=== PATIENT | male | born 1975 | race Caucasian/White ===

== ENCOUNTER 2023-07-05 07:45 | Outpatient (AMB) | payer OTHER, SELFPAY ==
--- NOTE | 2023-07-05 07:53 | MHC.OFFVIS ---
Intake Vital Signs 07/05/23 07:59 Height 5 ft 8.5 in Weight 250 lb BMI 37.5 BP 128/77 Blood Pressure Location Lt brachial Position Sitting Pulse 71 Intake Visit Reasons: Colonoscopy Screening Intake Note: Patient new consult for 1st pre colonoscopy screening. Patient denies any GI issues. 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 Has asthma-no hospitalizations, manages well Hx anal fissure- surgery 2000ish Bowels are normal Appetite is good-reviewed reflux precautions No nausea, vomiting, hematemesis, hematochezia fever or chills PFSH Surgical History Hx of tonsillectomy History of anal fissures Family History Father Obesity HTN (hypertension) Liver cancer Mother HTN (hypertension) Obesity Social History (Updated 07/05/23 @ 08:04 by Demetrice Larsen PA-C) Household Members: Family Household Members Other:: 2 kids Alcohol intake: current Alcohol intake frequency: holidays/special occasions only Patient Tobacco Use Status: Never used Tobacco Use of substances other than those prescribed or required for medical reasons: No Review of Systems Const All systems reviewed & are unremarkable except as noted in HPI and below Card Denies chest pain and Denies dyspnea Resp Denies dyspnea GI Denies abdominal pain, Denies hematochezia, Denies change in stool character, Reports heartburn, Denies nausea and Denies vomiting Physical Exam Vital Signs: Last Vital Signs Pulse 71 07/05/23 07:59 BP 128/77 07/05/23 07:59 BMI result Body Mass Index 37.5 Const General: cooperative, healthy appearing and comfortable Orientation/consciousness: patient oriented x3 Limitations: no limitations Eyes Sclerae: sclerae normal Resp Effort & Inspection: normal respiratory effort and able to speak in complete sentences Auscultation: clear to auscultation bilaterally, no rales, no rhonchi and no wheezes Cardio Rate: regular rate Rhythm: regular rhythm Heart sounds: S1 normal heart sound present and S2 normal heart sound present GI Palpation (GI): Soft to palpation and nontender Auscultation: normal bowel sounds Skin General skin exam: other (eczema) Neuro General: patient oriented x3 Extrem General: Yes full ROM Psych Appearance: grossly normal and well kempt Mental Status: mental status grossly normal Speech and movement: Normal speech and movement present and Clear speech present Affect: normal affect Attitude: cooperative Thought process: Normal thought process present Thought content: Normal thought content present Insight: Good insight present (Psych) Judgement: Good judgement present (Psych) Assessment & Plan Assessment & Plan (1) Acid reflux: Code(s): K21.9 - Gastro-esophageal reflux disease without esophagitis Plan: Reflux precautions Continue PPI (2) Encounter for screening colonoscopy: Comment: Screening colonoscopy Discussed procedure, risks need for escort Code(s): Z12.11 - Encounter for screening for malignant neoplasm of colon Plan: Screening colonoscopy MiraLax Gatorade prep Plan egd/ colon MiraLax Gatorade prep Orders: Orders EGD/Cushman Combo - GI Use Only Today K21.9 - Gastro-esophageal reflux disease without esophagitis, Z12.11 - Encounter for screening for malignant neoplasm of colon Medications: New polyethylene glycol 3350 (Miralax) Take as directed by mouth the day before your procedure. 238 grams PO ONCE 1 day PRN 238 grams 0RF laxative effect bisacodyl (Dulcolax (bisacodyl)) Day before procedure, prep day Take 4 tablets by mouth upon awakening followed by large glass of water 20 mg (4 x 5 mg) PO ONCE 1 day PRN 4 tabs 0RF colonoscopy prep Z12.11 - Encounter for screening for malignant neoplasm of colon Patient Instructions: Very pleasant 48-year-old Gent referred for screening colonoscopy presents with acid reflux. Pantoprazole with fair response. Agreeable to EGD for further evaluation of PUD, nonulcer dyspepsia, esophagitis or other endoscopic findings to account for his symptoms, as well as screening colonoscopy Reviewed prep, written literature given Reflux precautions reviewed, avoid culprits Continue PPI No major barriers to understanding are identified appreciate the opportunity assist in the care this Gent Coding Level of Care Code New Pt Level 3 (21803) Diagnoses Acid reflux K21.9 Encounter for screening colonoscopy Z12.11 Time Spent (min) 30
[2023-07-05 07:59] VITALS: BP 128/77; PULSE 71; BMI 37.5
== END 2023-07-05 08:19 | disposition home or self-care (01) ==
PROVIDERS: PCP Hospitalist; Visit Provider Physician Assistant
DX: K21.9 Gastro-esophageal reflux disease without esophagitis (principal); Z12.11 Encounter for screening for malignant neoplasm of colon
CPT/HCPCS: 99203

== ENCOUNTER → 2023-07-05 07:45 | Outpatient (BNVA) | payer OTHER, SELFPAY | PROVIDERS: PCP Hospitalist; Visit Provider Physician Assistant ==

== ENCOUNTER 2023-10-18 08:33 | Day surgery (SDC) | payer OTHER, SELFPAY ==
[2023-10-16 13:18] VITALS: BMI 37.5
--- NOTE | 2023-10-17 16:45 | HO.ANESPROP2 ---
HPI - Anesthesia Eval Consult details Narrative: 48 yo male patient for EGD, Colonoscopy PMFSH Active Problems Active Problems: All Active Problems Encounter for screening colonoscopy (Acute) Acid reflux (Acute) EDWARD. Uses CPAP Anxiety/ Depression HTN Past Medical History Medical History GERD (gastroesophageal reflux disease) Family History Family History Father Obesity HTN (hypertension) Liver cancer Mother HTN (hypertension) Obesity Family history of problems with anesthesia: No Surgical History Surgical History Hx of tonsillectomy History of anal fissures History of Problems with Anesthesia: No Social History Social History Household Members: Family Household Members Other:: 2 kids Alcohol intake: current Alcohol intake frequency: holidays/special occasions only Patient Tobacco Use Status: Never used Tobacco Are you DNR?: No Advance Directives: No Advance Directives Information Provided: Yes Nutrition Risks: No Nutritional Risk Meds Allergies Allergy/AdvReac Type Severity Reaction Status Date / Time No Known Allergies Allergy Verified 10/18/23 09:07 Home Medications ?Medication ?Instructions ?Recorded ?Confirmed ?Last Taken ?Type amlodipine 5 mg-valsartan 160 1 tab PO DAILY 07/05/23 10/16/23 Unknown History mg-hydrochlorothiazide 25 mg tablet pantoprazole 20 mg tablet,delayed 20 mg PO DAILY 07/05/23 10/16/23 Unknown History release sertraline 50 mg tablet 50 mg PO DAILY 07/05/23 10/16/23 Unknown History Exam Height,Weight and Vital Signs: Height 5 ft 8.5 in Weight 113.398 kg Vital Signs Temp Pulse Resp BP Pulse Ox O2 Del Method 10/18/23 10:08 98.2 F 58 18 120/75 99 Room Air Airway Mallampati Class: III TM Dist: >3cm Neck ROM: Full Loose/Missing/Broken Teeth: No Heart: RRR Lungs: CTAB Assessment and Plan Assessment Anesthesia Assessment: Anesthesia Plan Discussed and Chart Reviewed Final Anesthetic Review Family History of Problems with Anesthesia: No History of Problems with Anesthesia: No NPO: Yes ASA Class: III Final Preanesthetic Review: No Changes in Pt Med Stat, Meds/Allgs Chart Reviewed, Consent Obtained/Reviewed and Anes Risks/Benef Reviewed Patient Risk: Intermediate Procedure Risk: Low Assessment/Block/Sedation in SS: Assess/Block/Sedation-SS Anesthetic Plan Anesthetic Plan: MAC: and TIVA Disposition: Standard PACU
[2023-10-18 09:42] VITALS: BMI 39.0
[2023-10-18] MEDS: Lactated Ringers 1,000 ML 100 ML IVCONT (10:03)
[2023-10-18 10:08] VITALS: BP 120/75; PULSE 58; RESP 18; TEMP 36.8; O2SAT 99
--- NOTE | 2023-10-18 11:47 | W.PM.OPN ---
Operative Note Operative Note Date of Service: 10/18/23 Narrative: Operative Information Procedure Description: EGD, Colonoscopy Indication: screening, GERD Anesthesia: MAC FLEXIBLE TRANSORAL UPPER GASTROINTESTINAL ENDOSCOPY AND COLONOSCOPY PROCEDURE NOTE UPPER ENDOSCOPY Consent: Indications for the procedure and potential complications of bleeding, perforation, reaction to medications and missed diagnosis were discussed with the patient and informed consent was obtained. Instrument: Olympus GIF H 190 J mid size upper endoscope Monitoring: Vital signs and clinical assessment, continuous EKG monitoring, Pulse oximetry, Carbon Dioxide monitoring and blood pressure monitoring were done throughout the procedure. Procedure: The patient was placed in the left lateral decubitis position and pre-procedure medications were administered and a bite block was placed. The endoscope was inserted into the mouth and advanced under direct vision to the third part of duodenum. A careful inspection was made as the upper endoscope was withdrawn including a retroflexed examination of the proximal stomach; Findings and interventions are described below. Findings: Larynx:normal Esophagus: GE junction at 38 cm, diaphragm hiatus at 38 cm, schatzki ring noted with mild surrounding esophagitis, bx taken also from proximal esophagus Stomach: few patchy erosions and erythema in antrum. Biopsies were obtained. Grade 2 flap valve on retroflexed examination of the cardia. Duodenum: Normal bulb and descending duodenum, Intervention: Biopsies as noted above, COLONOSCOPY Instrument: Olympus variable stiffness ADULT scope 190L Colonoscopy Monitoring: Vital signs and clinical assessment, continuous EKG monitoring, Pulse oximetry, Carbon Dioxide monitoring and blood pressure monitoring were done throughout the procedure. Colon withdrawal time was 20 minutes. Procedure: The patient was placed in the left lateral decubitis position and pre-procedure medications were administered. After a digital rectal examination of the ano-rectum, the video colonoscope was inserted into the rectum and advanced through the colon to the cecum/TI. The colonoscope was slowly withdrawn in a retrograde panoramic fashion and the colon mucosa was carefully examined including a retroflexed view of the rectum. Findings and interventions are described below. Procedure Difficulty:moderate Findings: Terminal Ileum-not intubated Cecum:normal Ascending Colon: 12 mm flat granular polyp elveated with eleview and removed with stiff hot snare, retrieved with net and then x 3 clips applied to close defect Transverse Colon -normal Descending Colon:normal Sigmoid Colon: normal Rectum: Retroflexion with small internal hemorrhoids, grade I Anorectum - normal Colon preparation: Underwood Bowel Preparation Scale Right colon; 2 Transverse colon: 2 Left colon; 2 (0 = Unprepared colon segment with mucosa not seen due to solid stool that cannot be cleared. 1 = Portion of mucosa of the colon segment seen, but other areas of the colon segment not well seen due to staining, residual stool and/or opaque liquid. 2 = Minor amount of residual staining, small fragments of stool and/or opaque liquid, but mucosa of colon segment seen well. 3 = Entire mucosa of colon segment seen well with no residual staining, small fragments of stool or opaque liquid) Impression and Post Procedure Diagnosis: Endoscopy Findings: schatzki ring esophagitis, mild mild erosive gastritis Colonoscopy Findings: colon polyp internal hemorrhoids Plan: Await Pathology results Repeat Colonoscopy in 2-3 years or earlier if clinically indicated High fiber diet leaflet avoid straining at stool, epsom salts and sitz bath, anusol supps or cream GERd precautions --consider increasing PPI dose, avoid nsaids Above findings were reviewed with the patient and relevant handouts were provided if indicated.
[2023-10-18 12:04] VITALS: BP 123/84; PULSE 62; RESP 16; TEMP 36; O2SAT 97
[2023-10-18 12:19] VITALS: BP 133/90; PULSE 62; RESP 16; TEMP 36; O2SAT 97
== END 2023-10-18 13:15 | disposition home or self-care (01) ==
PROVIDERS: PCP Hospitalist; Visit Provider Internal Medicine Gastroenterology
PROC: (CPT 45381; principal; 2023-10-18 10:40)
DX: Z12.11 Encounter for screening for malignant neoplasm of colon (principal); D12.2 Benign neoplasm of ascending colon; K64.0 First degree hemorrhoids; K22.2 Esophageal obstruction; K21.00 Gastro-esophageal reflux disease with esophagitis, without bleeding; K29.60 Other gastritis without bleeding; Z79.899 Other long term (current) drug therapy
CPT/HCPCS: 45381; 45385; 43239; 88305; 88313; 88342; J1596; J2704

== ENCOUNTER → 2023-10-18 08:33 | Outpatient (BNV) | payer OTHER, SELFPAY | PROVIDERS: PCP Hospitalist; Visit Provider Internal Medicine Gastroenterology | DX: Z12.11 Encounter for screening for malignant neoplasm of colon (principal); K21.00 Gastro-esophageal reflux disease with esophagitis, without bleeding; K22.2 Esophageal obstruction; D12.2 Benign neoplasm of ascending colon; K64.0 First degree hemorrhoids | CPT/HCPCS: 43239; 45381; 45385 ==

== ENCOUNTER 2023-11-28 07:54 | Outpatient (AMB) | payer OTHER, SELFPAY ==
--- NOTE | 2023-11-28 08:06 | MHC.OFFVIS ---
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 Required: No Accompanied by: Self / Same As Patient Allergies No Known Allergies Allergy (Verified 11/28/23 08:06) Medication List - Last Reconciled 11/28/23 by Demetrice Larsen PA-C [id number] 5-160-25 mg 1 tab PO DAILY sertraline 50 mg PO DAILY HPI Comments Details: Very pleasant 48-year-old with acid reflux follows up after recent EGD and screening colonoscopy He tolerated procedures well He is taking pantoprazole 20 mg daily with occasional breakthrough symptoms Appetite good, he has begun going to the gym-dietary modifications on weight loss plan Bowels are normal Hemorrhoids, not been an issue Reviewed procedure report, pathology and recommendation He has no nausea, vomiting hematemesis, hematochezia fever chills PFSH Medical History (Updated 11/28/23 @ 08:32 by Demetrice Larsen PA-C) GERD (gastroesophageal reflux disease) Surgical History History of esophagogastroduodenoscopy (EGD) Hx of colonoscopy Hx of tonsillectomy History of anal fissures Family History Father Obesity HTN (hypertension) Liver cancer Mother HTN (hypertension) Obesity Social History Household Members: Family Household Members Other:: 2 kids Alcohol intake: current Alcohol intake frequency: holidays/special occasions only Patient Tobacco Use Status: Never used Tobacco Review of Systems Const All systems reviewed & are unremarkable except as noted in HPI and below GI Denies abdominal pain and Reports heartburn Physical Exam Vital Signs: Last Vital Signs Pulse 75 11/28/23 08:07 BP 134/76 11/28/23 08:07 BMI result Body Mass Index 39.7 Const General: cooperative, healthy appearing, comfortable and no acute distress Orientation/consciousness: patient oriented x3 Limitations: no limitations Neuro General: patient oriented x3 Extrem General: Yes full ROM Psych Appearance: grossly normal and well kempt Mental Status: mental status grossly normal Speech and movement: Normal speech and movement present and Clear speech present Affect: normal affect Attitude: cooperative Thought process: Normal thought process present Thought content: Normal thought content present Insight: Good insight present (Psych) Judgement: Good judgement present (Psych) Results Reviewed Results Reviewed: Impression and Post Procedure Diagnosis: Endoscopy Findings: schatzki ring esophagitis, mild mild erosive gastritis Colonoscopy Findings: colon polyp internal hemorrhoids Plan: Await Pathology results Repeat Colonoscopy in 2-3 years or earlier if clinically indicated High fiber diet leaflet avoid straining at stool, epsom salts and sitz bath, anusol supps or cream GERd precautions --consider increasing PPI dose, avoid nsaids Above findings were reviewed with the patient and relevant handouts were provided if indicated. Ascending Colon: 12 mm flat granular polyp elveated with eleview and removed with stiff hot snare, retrieved with net and then x 3 clips applied to close defec Name: AlejoBobby Age/Sex: 48/M Attending: Lazaro Pantoja MD : 1975 Submitted by: Lazaro Pantoja MD Copies to: Deanna Gross MD MR #: [id number] Status: [facility] Collected: 10/18/23 Location: [facility] Received: 10/18/23 Diagnosis A. Colon, ascending, polypectomy: Fragments of tubular adenoma; negative for high-grade dysplasia or carcinoma. B. Stomach, biopsy: Antral-type mucosa within normal limits; no Helicobacter organisms seen. C. GE junction, biopsy: - Cardiac-type mucosa with moderate chronic inactive inflammation; no intestinal metaplasia seen. - Active esophagitis (maximum eosinophil count 32 per high powered field). D. Esophagus, proximal, biopsy: Squamous epithelium within normal limits; no inflammation seen. Clinical History Pre-Op Dx: GERD, screening Post-Op Dx: Schatzki's ring, esophagitis, erosive gastritis, colon polyp, hemorrhoids Microscopic Description A-D. Microscopic sections examined. No metaplastic changes are seen, supported by AB/PAS stains (B and C); no Helicobacter organisms are seen, supported by H. pylori immunostain (B). Material Received A. Ascending colon polyp B. Stomach bx's C. GE junction D. Proximal esophagus bx's Gross Description Received in 4 parts. Part A: Received in formalin labeled ?ascending colon polyp? along with copious sarmiento debris are multiple sarmiento-pink irregular, rectangular and papular tissue fragments ranging from 0.15-0.6 cm and aggregating 1.2 x 1.0 x 0.1-0.45 cm, submitted in toto in a cassette labeled A. Part B: Received in formalin labeled ?stomach bx's (sic)? is a 0.35 cm sarmiento-pink irregular tissue fragment, submitted in toto in a cassette labeled B. Part C: Received in formalin labeled ?GE junction? are 3 pale, lane-pink irregular tissue fragments each Patient: Bobby Dhillon Age/Sex: 48/M MR#: [id number] Page 1 of 2 Assessment & Plan Assessment & Plan (1) Schatzki's ring: Code(s): K22.2 - Esophageal obstruction Category: Medical (2) Esophagitis: Code(s): K20.90 - Esophagitis, unspecified without bleeding Category: Medical Plan: Increase pantoprazole Avoid NSAID (3) Tubular adenoma: Comment: Repeat asymptomatic colonoscopy 2-3 All first-degree relatives begin colon screening at age 38 Code(s): D36.9 - Benign neoplasm, unspecified site Category: Medical Plan: Colonoscopy 2-3 year Ascending Colon: 12 mm flat granular polyp elveated with eleview and removed with stiff hot snare, retrieved with net and then x 3 clips applied to close defec Plan As discussed pantoprazole 40 mg carafate x 4 wks- avoid NSAIDs Reflux precautions Repeat asymptomatic colonoscopy 2-3 years Will see back in 4 office visit in 2 year All first-degree relatives begin colon screening at age 38 Will see back for progress with acid reflux 5 months-sooner if indicated Encouraged to call with questions or concerns Medications: New pantoprazole 40 mg PO DAILY 30 days 30 tabs 5RF sucralfate 1 g (10 mL) PO QIDACHS 4 weeks PRN 420 mL 0RF reflux Patient Instructions: As discussed pantoprazole 40 mg carafate x 4 wks- avoid NSAIDs Reflux precautions Repeat asymptomatic colonoscopy 2-3 years Will see back in 4 office visit in 2 year All first-degree relatives begin colon screening at age 38 Coding Level of Care Code Est Pt Level 3 (55618) Diagnoses Schatzki's ring K22.2 Esophagitis K20.90 Tubular adenoma D36.9 Time Spent (min) 20
[2023-11-28 08:07] VITALS: BP 134/76; PULSE 75; BMI 39.7
== END 2023-11-28 08:30 | disposition home or self-care (01) ==
PROVIDERS: PCP Hospitalist; Visit Provider Physician Assistant
DX: K22.2 Esophageal obstruction (principal); K20.90 Esophagitis, unspecified without bleeding; D36.9 Benign neoplasm, unspecified site
CPT/HCPCS: 99213

== ENCOUNTER → 2023-11-28 07:54 | Outpatient (BNVA) | payer OTHER, SELFPAY | PROVIDERS: PCP Hospitalist; Visit Provider Physician Assistant ==

== ENCOUNTER 2024-07-14 08:09 | Outpatient (AMB) | payer BC, SELFPAY ==
--- NOTE | 2024-07-14 08:13 | MHC.OFFVIS ---
Vital Signs 07/14/24 08:15 Height 5 ft 8.5 in Weight 265 lb BMI 39.7 BP 138/73 Blood Pressure Location Lt brachial Position Sitting Pulse 77 Intake Visit Reasons: Esophagitis/Demetrice pt Intake Note: Patient 8 month follow up for Esophagitis/Demetrice pt. Patient ramandeep was 10/2023 by Demetrice. Patient denies any GI issues fortoday visit. 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 Required: No Accompanied by: Self / Same As Patient Allergies No Known Allergies Allergy (Verified 07/14/24 08:11) HPI HPI Esophagitis/Demetrice pt: Details: LAST VISIT with Marilu HERNANDEZ 11/28/2023 Plan As discussed pantoprazole 40 mg carafate x 4 wks- avoid NSAIDs Reflux precautions Repeat asymptomatic colonoscopy 2-3 years Will see back in 4 office visit in 2 year All first-degree relatives begin colon screening at age 38 Will see back for progress with acid reflux 5 months-sooner if indicated Encouraged to call with questions or concerns TODAY'S VISIT Patient is here today to follow-up on his current treatment for acid reflux. Patient denies any GI concerning symptoms. Reports that his treatment for acid reflux has been working. It was changed to omeprazole. Patient denies any dyspepsia, dysphagia or odynophagia. Patient denies melena, hematochezia, unintentional weight loss or ribbon like stools. Colonoscopy next year in September. Patient reports to have good appetite. Denies abdominal pain or discomfort. Moves his bowels without any issues, denies any diarrhea or constipation [facility] Medical History (Updated 07/14/24 @ 18:43 by Noemy Dorsey [facility]) GERD (gastroesophageal reflux disease) Surgical History History of esophagogastroduodenoscopy (EGD) Hx of colonoscopy Hx of tonsillectomy History of anal fissures Family History Father Obesity HTN (hypertension) Liver cancer Mother HTN (hypertension) Obesity Social History Household Members: Family Household Members Other:: 2 kids Alcohol intake: current Alcohol intake frequency: holidays/special occasions only Patient Tobacco Use Status: Never used Tobacco Review of Systems Const Denies weight gain and Denies weight loss ENT Reports no additional complaints, Denies dysphagia and Denies odynophagia Card Reports no additional complaints Resp Reports no additional complaints GI Denies abdominal pain, Denies belching, Denies melena, Denies bloating, Denies change in bowel habits, Denies dysphagia, Denies excessive flatus, Denies dyspepsia, Denies heartburn, Denies diarrhea, Denies loose stools, Denies nausea, Denies odynophagia and Denies vomiting Reports no additional complaints Musc Reports no additional complaints Neuro Reports no additional complaints Psych Reports no additional complaints Endo Reports no additional complaints Physical Exam Vital Signs: Last Vital Signs Pulse 77 07/14/24 08:15 BP 138/73 07/14/24 08:15 BMI result Body Mass Index 39.7 Const General: healthy appearing and no acute distress Nutritional Appearance: obese Orientation/consciousness: patient oriented x3 Resp Effort & Inspection: normal respiratory effort, able to speak in complete sentences, no tracheal deviation and symmetric chest movement Auscultation: clear to auscultation bilaterally Cardio Rate: regular rate GI Inspection: Yes normal to inspection, No distended and Yes obesity Palpation (GI): Soft to palpation, not firm, nontender and No hepatosplenomegaly present Auscultation: normal bowel sounds General: Yes no CVA tenderness Back/Spine/Pelvis Back: no CVA tenderness Skin General skin exam: elasticity normal, turgor normal and dry skin Neuro General: patient oriented x3 Psych Appearance: grossly normal Mental Status: mental status grossly normal Assessment & Plan Assessment & Plan (1) Tubular adenoma: Code(s): D36.9 - Benign neoplasm, unspecified site Category: Medical (2) Schatzki's ring: Code(s): K22.2 - Esophageal obstruction Category: Medical (3) Esophagitis: Code(s): K20.90 - Esophagitis, unspecified without bleeding Category: Medical (4) Acid reflux: Code(s): K21.9 - Gastro-esophageal reflux disease without esophagitis Category: Medical Qualifiers: Esophagitis presence: with esophagitis Esophagitis bleeding: without hemorrhage Qualified Code(s): K21.00 - Gastro-esophageal reflux disease with esophagitis, without bleeding Plan Omeprazole daily. Avoid dietary triggers and late night snacking. Staying upright for minimum 3 hours after meals discussed with patient. Patient will be due to go for colonoscopy next year in September. Patient will follow-up in our office as needed or next year. Patient was encouraged to call us if he will have any GI concerning symptoms. He is agreeable to this plan and verbalizes understanding of instructions. He was given the opportunity to ask questions and all questions answered. Thank you for allowing me to participate in his care Medications: New omeprazole 20 mg PO DAILY 90 tabs 2RF Discontinued sucralfate Discontinued Reason: Doctor's Order 1 g (10 mL) PO QIDACHS 4 weeks PRN 420 mL 0RF reflux pantoprazole Discontinued Reason: Doctor's Order 40 mg PO DAILY 30 days 30 tabs 5RF Coding Level of Care Code Est Pt Level 3 (64249) Diagnoses Tubular adenoma D36.9 Schatzki's ring K22.2 Esophagitis K20.90 Gastroesophageal reflux disease with esophagitis without hemorrhage K21.00 Esophagitis presence: with esophagitis Esophagitis bleeding: without hemorrhage Time Spent (min) 25 Comment 15 minutes spent with patient and additional 10 minutes spent reviewing his records
--- OUTSIDE RECORDS SUMMARY | 2024-07-14 08:13 | XMS_ITS ---
Author Organization 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 Generated for Chesteri nata/Miky/eTransmitting on:?07/14/2024 08:12 AM EST
--- OUTSIDE RECORDS SUMMARY | 2024-07-14 08:13 | XMS_ITS ---
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 Generated for Christian peace/Miky/eTransmitting on:?07/14/2024 08:12 AM EST
--- OUTSIDE RECORDS SUMMARY | 2024-07-14 08:13 | XMS_ITS | Patient Health Record ---
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 Name Role Phone EDITH STANLEY Primary Care Provider Abran Casey Unavailable [phone] Allergies Allergen (clinical drug ingredient) Drug/Non Drug Allergy documented on EMR Reaction Allergy Type Onset Date Status Enviromental (uncoded) Unknown Allergy Active Mold (uncoded) Unknown Allergy Activ e Pet dander (uncoded) Unknown Allergy Active Dust Mite Mixed Allergen Ext Unknown Drug Allergy Active Results Component Value Reference Range Notes Vitamin D, [id number] Reviewed date:05/20/2024 07:47:34 AM Interpretation: Performing Lab:[facility], [address] [place] [address], Phone - [phone], Director - Angie Notes/Report: Clinical Information:SRC: Vitamin D, 25-Hydroxy 32.9 30.0-100.0 ng/mL Vitamin D deficiency has been defined by the [place] of [employer] and an Endocrine Society practice guideline as a level of serum 25-OH vitamin D less than 20 ng/mL (1,2). The Endocrine Society went on to further define vitamin D insufficiency as a level between 21 and 29 ng/mL (2). 1. IOM ([place] of Medicine). 2010. Dietary reference intakes for calcium and D. [place]: The National Academies Press. 2. Finn MF, Susanna NC, Inocencia LIMA, et al. Evaluation, treatment, and prevention of vitamin D deficiency: an Endocrine Society clinical practice guideline. JCEM. 2010; 96(7):5251-30. Hemoglobin [id number] Reviewed date:05/20/2024 07:47:30 AM Interpretation: Performing Lab:[facility], [address] [facility], [place], Phone - [phone], Director - Angie Notes/Report: Clinical Information:SRC: Hemoglobin A1c 6.1 4.8-5.6 % . Prediabetes: 5.7 - 6.4 Diabetes: >6.4 Glycemic control for adults with diabetes: <7.0 Hgb A1c with eAG Estimation- [id number] Reviewed date:10/14/2023 09:31:09 AM Interpretation: Performing Lab:[facility], [address] [facility], [place], Phone - [phone], Director - Angie Notes/Report: Hemoglobin A1c 5.6 4.8-5.6 % . Prediabetes: 5.7 - 6.4 Diabetes: >6.4 Glycemic control for adults with diabetes: <7.0 Estim. Avg Glu (eAG) 114 Reason For Referral No Information Medications Medication SIG (Take, Route, Frequency, Duration) Notes Start Date End Date Status ZyrTEC Allergy 10 MG 1 tablet Orally Onc e a day Active Flonase Allergy Relief 50 MCG/ACT 1 spray in each nostril Nasally Once a day as needed Not-Taking Albuterol Sulfate HFA 108 (90 Base) MCG/ACT 1 puff as needed Inhalation every 4 hrs Active Diprolene 0.05 % 1 application Externally twice a day for 30 days Active Pantoprazole Sodium 20 MG TAKE 1 TABLET BY MOUTH EVERY DAY for 90 Active Omeprazole 20 MG 1 capsule 30 minutes before morning meal Orally Once a day for 30 days 05/28/2024 Active amLODIPine Besylate 5 MG 1 tablet Orally Once a day for 90 days Active Sertraline HCl 25 MG TAKE 1 TABLET BY MOUTH EVERY DAY for 30 Active hydroCHLOROthiazide 25 MG 1 tablet in th e morning Orally Once a day for 90 days Active Sertraline HCl 50 MG TAKE 1 TABLET BY MOUTH EVERY DAY for 90 Active Immunizations Vaccine Route Administration Date Status Comme nts COVID Unknown 09/23/2020 Administered 1st pizer COVID Unknown 10/14/2020 Administered 2nd pfizer COVID Unknown 04/16/2021 Administered COVID Unknown 03/31/2022 Administered Influenza Unknown 03/31/2022 Administered Influenza, high dose seasonal Unknown 04/16/2021 Admini stered Tdap Unknown 12/09/2009 Administered Social History Tobacco Use: Social History Observation Description Date Details (start date - stop date) Never Smoker NA - NA Tobacco Use/Smoking Question Answer Notes Are you a nonsmoker Alcohol Screen (Audit-C) Question Answer Notes Did you have a drink containing alcohol in the p ast year? No Points 0 Interpretation Negative Problems Problem Type SNOMED Code ICD Code Onset Dates Problem Status W/U Status Risk Notes Problem Mild recurrent major depression (42885242) Major depressive disorder, recurrent, mild (F33.0) Active confirmed Problem Insomnia (676510223) Insomnia, unspecified (G47.00) Active confirmed Problem Seasonal allergic rhinitis (722499657) Other seasonal allergic rhinitis (J30.2) Active confirmed Problem Gastro-esophagea l reflux disease without esophagitis (125162870) Gastro-esophagea l reflux disease without esophagitis (K21.9) Active confirmed Problem Essential hypertension (21673182) Essential (primary) hypertension (I10) Active confirmed Problem Vitamin D deficiency (78237911) Vitamin D deficiency (E55.9) Active confirmed Problem History of disease caused by Severe acute respiratory syndrome coronavirus 2 (situation) (620010709028204 105) Personal history of COVID-19 (Z86.16) Active confirmed Problem Obstructive sleep apnea (53375867) Obstructive sleep apnea (G47.33) Active confirmed Problem Seasonal allergy (102581414) Seasonal allergies (J30.2) Active confirmed Vital Signs Heart Rate 72 /min 05/28/2024 Temperature 97.6 degrees Fahrenheit 03/19/2024 Blood pressure diastolic 90 mm Hg 05/28/2024 Oximetry 100 % 05/28/2024 Height 69.6 in 05/28/2024 Blood pressure systolic 138 mm Hg 05/28/2024 Weight 271 lbs 05/28/2024 BMI 39.33 kg/m2 05/28/2024 Encounters Encounter Location Date Provider Diagnosis [facility] [address] [address] 11/22/2023 EDITH STANLEY Essential (primary) hypertension I10 ; Gastro-esophageal reflux disease without esophagitis K21.9 ; Obstructive sleep apnea G47.33 ; Major depressive disorder, recurrent, mild F33.0 ; Vitamin D deficiency E55.9 ; Impaired fasting glucose R73.01 and Dermatitis, unspecified L30.[address] [address] 03/19/2024 Abran Casey Hypertrophic disorde r of the skin, unspecified L91.[address] [address] 05/28/2024 SHARMABOBBI GARZA Essential (primary) hypertension I10 ; Major depressive disorder, recurrent, mild F33.0 ; Gastro-esophageal reflux disease without esophagitis K21.9 ; Vitamin D deficiency E55.9 ; Impaired fasting glucose R73.01 and Obstructive sleep apnea G47.[address] [address] 09/19/[address] [address] 05/06/[address] [address] 05/08/2024 SHARMA GU Assessments Encounter Date Diagnosis (ICD Code) Assessment Notes Treatment Notes Treatment Clinical Notes Section Notes 11/22/2023 Gastro-esophage al reflux disease without esophagitis (ICD-10 - K21.9) Mr. Dhillon is a 48-year-old gentleman with a history of hypertension, asthma, seasonal allergies and depression here for follow up. Plan is as follows: Hypertension. Blood pressure is borderline high in the office today. Cut back on sodium intake. Advised appropriate hydration, cardio exercises and weight loss. Continue on current regimen. Major depressive disorder. Mood stable on Zoloft 75 MG daily. He talks to a counselor on a regular basis. Morbid obesity. Advised dietary restrictions and regimental exercise. Goal is to lose 5-6 lbs a month. GERD. Dietary restrictions advised and keep head elevated in bed. No late night eating. Keep a food diary and avoid triggers. Avoid heavy doses of NSAIDs. He is given Protonix 20 MG to be taken 30 minutes before dinner. EDWARD. Mallampati Class 4. Different modalities discussed. He will have a sleep study in June. Impaired fasting glucose. Fasting sugars 107. Dietary restrictions, regimental exercise and weight loss advised. Check A1c. Vitamin D deficiency. He can take Vitamin D supplements. Check levels. General health concerns discussed with patient. Scribe services used to formulate this note under HIPAA compliance and under [place] law mandated for scribe services. Patient aware of service. Verbal consent and written consent taken from the patient. Patient understands and verbalizes understanding of the scribes services and all questions answered regarding scribes services. Patient agrees to use of scribes services. 11/22/2023 Essential (primary) hypertension (ICD-10 - I10) Mr. Dhillon is a 48-year-old gentleman with a history of hypertension, asthma, seasonal allergies and depression here for follow up. Plan is as follows: Hypertension. Blood pressure is borderline high in the office today. Cut back on sodium intake. Advised appropriate hydration, cardio exercises and weight loss. Continue on current regimen. Major depressive disorder. Mood stable on Zoloft 75 MG daily. He talks to a counselor on a regular basis. Morbid obesity. Advised dietary restrictions and regimental exercise. Goal is to lose 5-6 lbs a month. GERD. Dietary restrictions advised and keep head elevated in bed. No late night eating. Keep a food diary and avoid triggers. Avoid heavy doses of NSAIDs. He is given Protonix 20 MG to be taken 30 minutes before dinner. EDWARD. Mallampati Class 4. Different modalities discussed. He will have a sleep study in June. Impaired fasting glucose. Fasting sugars 107. Dietary restrictions, regimental exercise and weight loss advised. Check A1c. Vitamin D deficiency. He can take Vitamin D supplements. Check levels. General health concerns discussed with patient. Scribe services used to formulate this note under HIPAA compliance and under [place] law mandated for scribe services. Patient aware of service. Verbal consent and written consent taken from the patient. Patient understands and verbalizes understanding of the scribes services and all questions answered regarding scribes services. Patient agrees to use of scribes services. 03/19/2024 Hypertrophic disorder of the skin, unspecified (ICD-10 - L91.9) Mr. Dhillon is a 48-year-old gentleman with a history of hypertension, asthma, seasonal allergies and depression here cyst on his right arm. Plan as follows: Hypertrophic disorder of the skin: - DDx viral wart. Liquid nitrogen is used. Before use side effects of the liquid nitrogen-like blistering, discoloration, hyperpigmentation discussed with the patient and we proceeded with the treatment with his verbal consent. If it does not improve then we will send to dermatology. I have rendered the services for this patient under direct supervision of Dr. Stanley, who did see the patient 05/28/2024 Major depressive disorder, recurrent, mild (ICD-10 - F33.0) Mr. Dhillon is a 49-year-old gentleman with a history of hypertension, asthma, seasonal allergies and depression here for follow up. Plan is as follows: Hypertension. His blood pressure is running high in the office today. Cut back on sodium intake. Advised appropriate hydration, cardio exercises and weight loss. Continue on current regimen because his home blood pressure readings are usually 120/80. He was advised to bring his blood pressure cuff on his next visit to compare. Impaired fasting glucose. Hemoglobin A1c 6.1 which is high risk. Dietary changes, lifestyle changes and regular exercise. Recheck hemoglobin A1c before next appointment. Major depressive disorder. Mood stable on Zoloft 75 MG daily. He talks to a counselor on a regular basis. Morbid obesity. Advised dietary restrictions and regimental exercise. Goal is to lose 5-6 lbs a month. GERD. Dietary restrictions advised and keep head elevated in bed. No late night eating. Keep a food diary and avoid triggers. Avoid heavy doses of NSAIDs. Start Omeprazole 20 MG daily. EDWARD. Mallampati Class 4. Different modalities discussed. He will have a sleep study in June. Vitamin D deficiency. He can take Vitamin D supplements pain levels are within normal limits General health concerns discussed with patient. Scribe services used to formulate this note under HIPAA compliance and under [place] law mandated for scribe services. Patient aware of service. Verbal consent and written consent taken from the patient. Patient understands and verbalizes understanding of the scribes services and all questions answered regarding scribes services. Patient agrees to use of scribes services. 05/28/2024 Essential (primary) hypertension (ICD-10 - I10) Mr. Dhillon is a 49-year-old gentleman with a history of hypertension, asthma, seasonal allergies and depression here for follow up. Plan is as follows: Hypertension. His blood pressure is running high in the office today. Cut back on sodium intake. Advised appropriate hydration, cardio exercises and weight loss. Continue on current regimen because his home blood pressure readings are usually 120/80. He was advised to bring his blood pressure cuff on his next visit to compare. Impaired fasting glucose. Hemoglobin A1c 6.1 which is high risk. Dietary changes, lifestyle changes and regular exercise. Recheck hemoglobin A1c before next appointment. Major depressive disorder. Mood stable on Zoloft 75 MG daily. He talks to a counselor on a regular basis. Morbid obesity. Advised dietary restrictions and regimental exercise. Goal is to lose 5-6 lbs a month. GERD. Dietary restrictions advised and keep head elevated in bed. No late night eating. Keep a food diary and avoid triggers. Avoid heavy doses of NSAIDs. Start Omeprazole 20 MG daily. EDWARD. Mallampati Class 4. Different modalities discussed. He will have a sleep study in June. Vitamin D deficiency. He can take Vitamin D supplements pain levels are within normal limits General health concerns discussed with patient. Scribe services used to formulate this note under HIPAA compliance and under [place] law mandated for scribe services. Patient aware of service. Verbal consent and written consent taken from the patient. Patient understands and verbalizes understanding of the scribes services and all questions answered regarding scribes services. Patient agrees to use of scribes services. 05/28/2024 Gastro-esophage al reflux disease without esophagitis (ICD-10 - K21.9) Mr. Dhillon is a 49-year-old gentleman with a history of hypertension, asthma, seasonal allergies and depression here for follow up. Plan is as follows: Hypertension. His blood pressure is running high in the office today. Cut back on sodium intake. Advised appropriate hydration, cardio exercises and weight loss. Continue on current regimen because his home blood pressure readings are usually 120/80. He was advised to bring his blood pressure cuff on his next visit to compare. Impaired fasting glucose. Hemoglobin A1c 6.1 which is high risk. Dietary changes, lifestyle changes and regular exercise. Recheck hemoglobin A1c before next appointment. Major depressive disorder. Mood stable on Zoloft 75 MG daily. He talks to a counselor on a regular basis. Morbid obesity. Advised dietary restrictions and regimental exercise. Goal is to lose 5-6 lbs a month. GERD. Dietary restrictions advised and keep head elevated in bed. No late night eating. Keep a food diary and avoid triggers. Avoid heavy doses of NSAIDs. Start Omeprazole 20 MG daily. EDWARD. Mallampati Class 4. Different modalities discussed. He will have a sleep study in June. Vitamin D deficiency. He can take Vitamin D supplements pain levels are within normal limits General health concerns discussed with patient. Scribe services used to formulate this note under HIPAA compliance and under [place] law mandated for scribe services. Patient aware of service. Verbal consent and written consent taken from the patient. Patient understands and verbalizes understanding of the scribes services and all questions answered regarding scribes services. Patient agrees to use of scribes services. 11/22/2023 Obstructive sleep apnea (ICD-10 - G47.33) Mr. Dhillon is a 48-year-old gentleman with a history of hypertension, asthma, seasonal allergies and depression here for follow up. Plan is as follows: Hypertension. Blood pressure is borderline high in the office today. Cut back on sodium intake. Advised appropriate hydration, cardio exercises and weight loss. Continue on current regimen. Major depressive disorder. Mood stable on Zoloft 75 MG daily. He talks to a counselor on a regular basis. Morbid obesity. Advised dietary restrictions and regimental exercise. Goal is to lose 5-6 lbs a month. GERD. Dietary restrictions advised and keep head elevated in bed. No late night eating. Keep a food diary and avoid triggers. Avoid heavy doses of NSAIDs. He is given Protonix 20 MG to be taken 30 minutes before dinner. EDWARD. Mallampati Class 4. Different modalities discussed. He will have a sleep study in June. Impaired fasting glucose. Fasting sugars 107. Dietary restrictions, regimental exercise and weight loss advised. Check A1c. Vitamin D deficiency. He can take Vitamin D supplements. Check levels. General health concerns discussed with patient. Scribe services used to formulate this note under HIPAA compliance and under [place] law mandated for scribe services. Patient aware of service. Verbal consent and written consent taken from the patient. Patient understands and verbalizes understanding of the scribes services and all questions answered regarding scribes services. Patient agrees to use of scribes services. 11/22/2023 Major depressive disorder, recurrent, mild (ICD-10 - F33.0) Mr. Dhillon is a 48-year-old gentleman with a history of hypertension, asthma, seasonal allergies and depression here for follow up. Plan is as follows: Hypertension. Blood pressure is borderline high in the office today. Cut back on sodium intake. Advised appropriate hydration, cardio exercises and weight loss. Continue on current regimen. Major depressive disorder. Mood stable on Zoloft 75 MG daily. He talks to a counselor on a regular basis. Morbid obesity. Advised dietary restrictions and regimental exercise. Goal is to lose 5-6 lbs a month. GERD. Dietary restrictions advised and keep head elevated in bed. No late night eating. Keep a food diary and avoid triggers. Avoid heavy doses of NSAIDs. He is given Protonix 20 MG to be taken 30 minutes before dinner. EDWARD. Mallampati Class 4. Different modalities discussed. He will have a sleep study in June. Impaired fasting glucose. Fasting sugars 107. Dietary restrictions, regimental exercise and weight loss advised. Check A1c. Vitamin D deficiency. He can take Vitamin D supplements. Check levels. General health concerns discussed with patient. Scribe services used to formulate this note under HIPAA compliance and under [place] law mandated for scribe services. Patient aware of service. Verbal consent and written consent taken from the patient. Patient understands and verbalizes understanding of the scribes services and all questions answered regarding scribes services. Patient agrees to use of scribes services. 05/28/2024 Vitamin D deficiency (ICD-10 - E55.9) Mr. Dhillon is a 49-year-old gentleman with a history of hypertension, asthma, seasonal allergies and depression here for follow up. Plan is as follows: Hypertension. His blood pressure is running high in the office today. Cut back on sodium intake. Advised appropriate hydration, cardio exercises and weight loss. Continue on current regimen because his home blood pressure readings are usually 120/80. He was advised to bring his blood pressure cuff on his next visit to compare. Impaired fasting glucose. Hemoglobin A1c 6.1 which is high risk. Dietary changes, lifestyle changes and regular exercise. Recheck hemoglobin A1c before next appointment. Major depressive disorder. Mood stable on Zoloft 75 MG daily. He talks to a counselor on a regular basis. Morbid obesity. Advised dietary restrictions and regimental exercise. Goal is to lose 5-6 lbs a month. GERD. Dietary restrictions advised and keep head elevated in bed. No late night eating. Keep a food diary and avoid triggers. Avoid heavy doses of NSAIDs. Start Omeprazole 20 MG daily. EDWARD. Mallampati Class 4. Different modalities discussed. He will have a sleep study in June. Vitamin D deficiency. He can take Vitamin D supplements pain levels are within normal limits General health concerns discussed with patient. Scribe services used to formulate this note under HIPAA compliance and under [place] law mandated for scribe services. Patient aware of service. Verbal consent and written consent taken from the patient. Patient understands and verbalizes understanding of the scribes services and all questions answered regarding scribes services. Patient agrees to use of scribes services. 05/28/2024 Impaired fasting glucose (ICD-10 - R73.01) Mr. Dhillon is a 49-year-old gentleman with a history of hypertension, asthma, seasonal allergies and depression here for follow up. Plan is as follows: Hypertension. His blood pressure is running high in the office today. Cut back on sodium intake. Advised appropriate hydration, cardio exercises and weight loss. Continue on current regimen because his home blood pressure readings are usually 120/80. He was advised to bring his blood pressure cuff on his next visit to compare. Impaired fasting glucose. Hemoglobin A1c 6.1 which is high risk. Dietary changes, lifestyle changes and regular exercise. Recheck hemoglobin A1c before next appointment. Major depressive disorder. Mood stable on Zoloft 75 MG daily. He talks to a counselor on a regular basis. Morbid obesity. Advised dietary restrictions and regimental exercise. Goal is to lose 5-6 lbs a month. GERD. Dietary restrictions advised and keep head elevated in bed. No late night eating. Keep a food diary and avoid triggers. Avoid heavy doses of NSAIDs. Start Omeprazole 20 MG daily. EDWARD. Mallampati Class 4. Different modalities discussed. He will have a sleep study in June. Vitamin D deficiency. He can take Vitamin D supplements pain levels are within normal limits General health concerns discussed with patient. Scribe services used to formulate this note under HIPAA compliance and under [place] law mandated for scribe services. Patient aware of service. Verbal consent and written consent taken from the patient. Patient understands and verbalizes understanding of the scribes services and all questions answered regarding scribes services. Patient agrees to use of scribes services. 11/22/2023 Vitamin D deficiency (ICD-10 - E55.9) Mr. Dhillon is a 48-year-old gentleman with a history of hypertension, asthma, seasonal allergies and depression here for follow up. Plan is as follows: Hypertension. Blood pressure is borderline high in the office today. Cut back on sodium intake. Advised appropriate hydration, cardio exercises and weight loss. Continue on current regimen. Major depressive disorder. Mood stable on Zoloft 75 MG daily. He talks to a counselor on a regular basis. Morbid obesity. Advised dietary restrictions and regimental exercise. Goal is to lose 5-6 lbs a month. GERD. Dietary restrictions advised and keep head elevated in bed. No late night eating. Keep a food diary and avoid triggers. Avoid heavy doses of NSAIDs. He is given Protonix 20 MG to be taken 30 minutes before dinner. EDWARD. Mallampati Class 4. Different modalities discussed. He will have a sleep study in June. Impaired fasting glucose. Fasting sugars 107. Dietary restrictions, regimental exercise and weight loss advised. Check A1c. Vitamin D deficiency. He can take Vitamin D supplements. Check levels. General health concerns discussed with patient. Scribe services used to formulate this note under HIPAA compliance and under [place] law mandated for scribe services. Patient aware of service. Verbal consent and written consent taken from the patient. Patient understands and verbalizes understanding of the scribes services and all questions answered regarding scribes services. Patient agrees to use of scribes services. 11/22/2023 Impaired fasting glucose (ICD-10 - R73.01) Mr. Dhillon is a 48-year-old gentleman with a history of hypertension, asthma, seasonal allergies and depression here for follow up. Plan is as follows: Hypertension. Blood pressure is borderline high in the office today. Cut back on sodium intake. Advised appropriate hydration, cardio exercises and weight loss. Continue on current regimen. Major depressive disorder. Mood stable on Zoloft 75 MG daily. He talks to a counselor on a regular basis. Morbid obesity. Advised dietary restrictions and regimental exercise. Goal is to lose 5-6 lbs a month. GERD. Dietary restrictions advised and keep head elevated in bed. No late night eating. Keep a food diary and avoid triggers. Avoid heavy doses of NSAIDs. He is given Protonix 20 MG to be taken 30 minutes before dinner. EDWARD. Mallampati Class 4. Different modalities discussed. He will have a sleep study in June. Impaired fasting glucose. Fasting sugars 107. Dietary restrictions, regimental exercise and weight loss advised. Check A1c. Vitamin D deficiency. He can take Vitamin D supplements. Check levels. General health concerns discussed with patient. Scribe services used to formulate this note under HIPAA compliance and under [place] law mandated for scribe services. Patient aware of service. Verbal consent and written consent taken from the patient. Patient understands and verbalizes understanding of the scribes services and all questions answered regarding scribes services. Patient agrees to use of scribes services. 05/28/2024 Obstructive sleep apnea (ICD-10 - G47.33) Mr. Dhillon is a 49-year-old gentleman with a history of hypertension, asthma, seasonal allergies and depression here for follow up. Plan is as follows: Hypertension. His blood pressure is running high in the office today. Cut back on sodium intake. Advised appropriate hydration, cardio exercises and weight loss. Continue on current regimen because his home blood pressure readings are usually 120/80. He was advised to bring his blood pressure cuff on his next visit to compare. Impaired fasting glucose. Hemoglobin A1c 6.1 which is high risk. Dietary changes, lifestyle changes and regular exercise. Recheck hemoglobin A1c before next appointment. Major depressive disorder. Mood stable on Zoloft 75 MG daily. He talks to a counselor on a regular basis. Morbid obesity. Advised dietary restrictions and regimental exercise. Goal is to lose 5-6 lbs a month. GERD. Dietary restrictions advised and keep head elevated in bed. No late night eating. Keep a food diary and avoid triggers. Avoid heavy doses of NSAIDs. Start Omeprazole 20 MG daily. EDWARD. Mallampati Class 4. Different modalities discussed. He will have a sleep study in June. Vitamin D deficiency. He can take Vitamin D supplements pain levels are within normal limits General health concerns discussed with patient. Scribe services used to formulate this note under HIPAA compliance and under [place] law mandated for scribe services. Patient aware of service. Verbal consent and written consent taken from the patient. Patient understands and verbalizes understanding of the scribes services and all questions answered regarding scribes services. Patient agrees to use of scribes services. 11/22/2023 Dermatitis, unspecified (ICD-10 - L30.9) Mr. Dhillon is a 48-year-old gentleman with a history of hypertension, asthma, seasonal allergies and depression here for follow up. Plan is as follows: Hypertension. Blood pressure is borderline high in the office today. Cut back on sodium intake. Advised appropriate hydration, cardio exercises and weight loss. Continue on current regimen. Major depressive disorder. Mood stable on Zoloft 75 MG daily. He talks to a counselor on a regular basis. Morbid obesity. Advised dietary restrictions and regimental exercise. Goal is to lose 5-6 lbs a month. GERD. Dietary restrictions advised and keep head elevated in bed. No late night eating. Keep a food diary and avoid triggers. Avoid heavy doses of NSAIDs. He is given Protonix 20 MG to be taken 30 minutes before dinner. EDWARD. Mallampati Class 4. Different modalities discussed. He will have a sleep study in June. Impaired fasting glucose. Fasting sugars 107. Dietary restrictions, regimental exercise and weight loss advised. Check A1c. Vitamin D deficiency. He can take Vitamin D supplements. Check levels. General health concerns discussed with patient. Scribe services used to formulate this note under HIPAA compliance and under [place] law mandated for scribe services. Patient aware of service. Verbal consent and written consent taken from the patient. Patient understands and verbalizes understanding of the scribes services and all questions answered regarding scribes services. Patient agrees to use of scribes services. Plan Of Treatment Pending Test Test Name Order Date 25 HYDROXY VITAMIN D2 D3 05/24/2022 HEMOGLOBIN A1C 03/12/2023 Future Test Test Name Order Date Hemoglobin [id number] 05/28/2024 Albumin/Creatinine Ratio,[id number] Lipid [id number] 05/28/2024 Comp. Metabolic Panel [id number] 2023 Next Appt Details Provider Name:Abran lew, 11/20/2024 08:15:00 AM, [address] [place] [address], [place], [id number], Insurance Providers Payer Name Payer Address Payer Phone Subscriber Number Group Number Insured Name Patient Relationship to Insured Coverage Start Date Coverage End Date Renata Rivera [address] [place] [address] [id number] Bobby Dhillon Self - patient is the insured Medical (General) History Medical History History ICD Code depression He sees a counselor eczema Anxiety Exercise-induced asthma Personal history of COVID-19 Surgical History Surgery Date(Month/Year) anal fissure Hospitalization History Reason Date(Month/Year)
[2024-07-14 08:15] VITALS: BP 138/73; PULSE 77; BMI 39.7
== END 2024-07-14 08:41 | disposition home or self-care (01) ==
PROVIDERS: PCP Hospitalist; Visit Provider Internal Medicine Gastroenterology
DX: K21.00 Gastro-esophageal reflux disease with esophagitis, without bleeding (principal); K22.2 Esophageal obstruction; Z86.0101 Personal history of adenomatous and serrated colon polyps
CPT/HCPCS: 99213